=== PATIENT | male | born 1945 | race Caucasian/White ===

== ENCOUNTER 2018-08-20 11:09 | Emergency (ER) | payer MEDICARE, OTHER ==
[2018-08-20 11:51] VITALS: BP 131/72
--- NOTE | 2018-08-20 12:48 | ED ---
Adult Trauma - HPI Summary HPI Summary: 73 yr old male with the complaint of continued right femur and back pain. Onset 5-6 years ago post falling off a truck in [place] when at work. He states he has had MRIs and surgery on his right femur and has had fractures in his low back from this accident when at work. He states that he was discharged from [facility] after incarceration for three and a half years. He states he was seen Dr Cope for chronic pain. He has no primary care doctor, and he has no specialists or worker comp doctors at this point after just being released from half-way. He reports 610 pain, and this is chronic. 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 No bowel or bladder incontinence. No focal weakness or numbness that is new. - History of Current Complaint Chief Complaint: UCLowerExtremity Stated Complaint: WC-RT LEG AND BACK PAIN Time Seen by Provider: 08/20/18 12:24 Pain Intensity: 6 - Allergy/Home Medications Allergies/Adverse Reactions: Allergies Allergy/AdvReac Type Severity Reaction Status Date / Time oxycodone [From OxyContin] Allergy Rash Verified 08/20/18 11:51 Home Medications: Home Medications NK [No Home Medications Reported] 08/20/18 [History Confirmed 08/20/18] PMH/Surg Hx/FS Hx/Imm Hx Endocrine/Hematology History: Denies: Hx Diabetes, Hx Thyroid Disease Cardiovascular History: Denies: Hx Hypertension Respiratory History: Denies: Hx Asthma, Hx Chronic Obstructive Pulmonary Disease (COPD) GI History: Denies: Hx Ulcer - Surgical History Surgery Procedure, Year, and Place: right leg fx. left ankle fx. hernia. left knee Infectious Disease History: No Infectious Disease History: Denies: Hx Hepatitis, Hx Human Immunodeficiency Virus (HIV), Traveled Outside the [place] in Last 30 Days - Social History Occupation: Unemployed Alcohol Use: None Substance Use Type: Reports: None Hx Tobacco Use: Yes Smoking Status (MU): Former Smoker Review of Systems Constitutional: Negative Positive: Other - back pain, chronic, right femur pain chronic for 5 years. All Other Systems Reviewed And Are Negative: Yes Physical Exam Triage Information Reviewed: Yes Vital Signs On Initial Exam: Initial Vitals Temp Pulse Resp BP Pulse Ox 97.8 F 65 18 131/72 93 08/20/18 11:40 08/20/18 11:40 08/20/18 11:40 08/20/18 11:40 08/20/18 11:40 Vital Signs Reviewed: Yes Appearance: Positive: Well-Appearing, No Pain Distress Skin: Positive: Warm Head/Face: Positive: Normal Head/Face Inspection Eyes: Positive: EOMI ENT: Positive: Normal ENT inspection Neck: Positive: Nontender Respiratory/Lung Sounds: Positive: Clear to Auscultation, Breath Sounds Present Cardiovascular: Positive: RRR. Negative: Murmur Abdomen Description: Negative: Distended Musculoskeletal: Positive: Other - scar right lateral femur without any redness or swelling. No focal bone tenderness. No CTLS spine tenderness in the midline. he does have a lidoderme patch in the mid lumar spine. Neurological: Positive: Alert, Oriented to Person Place, Time, CN Intact II-III , Normal Gait - but favors his right leg due to pain, Speech Normal Psychiatric: Positive: Normal Diagnostics - Vital Signs Vital Signs Temp Pulse Resp BP Pulse Ox 08/20/18 11:40 97.8 F 65 18 131/72 93 - Laboratory Lab Statement: Any lab studies that have been ordered have been reviewed, and results considered in the medical decision making process. Adult Trauma Course/Dx - Course Course Of Treatment: 73 yr old chronic low back pain and right femur pain. Will Refer to Dr Hines for occupational medicine eval, and also Orthopedics for Spine and femur evaluation, and back to Dr oCpe for half-way pain management.And also to primary care. - Diagnoses Provider Diagnoses: Back pain, Pain in right femur Discharge - Sign-Out/Discharge Documenting (check all that apply): Patient Departure All imaging exams completed and their final reports reviewed: No Studies - Discharge Plan Condition: Good Disposition: HOME Patient Education Materials: Chronic Back Pain (DC), Leg Pain (ED) Referrals: No Primary Care Phys,[facility]OPCP [Primary Care Provider] - [facility] [place] [place] [facility] [place]] - 1 Day Isidro Hines MD [Medical Doctor] - 1 Day Jaciel Cope DO [Doctor of Osteopathy] - 1 Day Belkis Elizabeth MD [Medical Doctor] - 1 Day - Billing Disposition and Condition Condition: GOOD Disposition: Home
== END 2018-08-20 13:15 | disposition home or self-care (01) ==
LOC: UCCORT 11:09
DX: M54.9 Dorsalgia, unspecified (principal); M79.651 Pain in right thigh; Z87.891 Personal history of nicotine dependence
CPT/HCPCS: 99201; G0463